=== PATIENT | female | born 1975 | race Caucasian/White ===

== ENCOUNTER 2017-06-19 12:41 | Outpatient (CLI) | payer OTHER ==
[2017-06-19] MEDS ORDERED: Furosemide 40 MG/4 ML VIAL ONE (16:09)
--- NOTE | 2017-06-19 17:07 | NM ---
RADIONUCLIDE DIURETIC RENOGRAM 06/19/17 HISTORY: Right sided hydronephrosis. RADIOPHARMACEUTICAL: 7.8 millicuries technetium 99m-MAG3 injected intravenously. DIURETIC: 40 mg IV Lasix administered 15 minutes prior to the radiopharmaceutical. FINDINGS: There is diminished flow and slow uptake by the right kidney. The left kidney demonstrates normal fl ow, uptake and excretion with a downsloping excretion curve. There is slow upslope noted in the poor ly functioning right kidney. The differential function measures 85% on the left and 15% on the right. The right kidney does not demonstrate increasing tracer localization on the images even at the end o f the exam and there is no evidence of focal areas of intense uptake to suggest an obstructive proce ss. IMPRESSION: Poor function of the right kidney. No evidence of high grade obstruction. POS: KARI
== END 2017-06-19 12:42 | disposition home or self-care (01) ==
LOC: NM 12:41
PROVIDERS: ATTEND Urology
DX: N13.39 Other hydronephrosis (principal)
CPT/HCPCS: 78708; A4641; A9562; J1940

== ENCOUNTER 2017-09-29 09:00 | Outpatient (CLI) | payer OTHER, SELFPAY ==
--- NOTE | 2017-09-29 12:44 | CT ---
CT OF THE ABDOMEN AND PELVIS: 09/29/2017 HISTORY: Hydronephrosis. Right-sided pain. Hematuria. Cervical cancer with history of chemotherapy and radi ation. COMPARISON: 01/06/2017 TECHNIQUE: Serial axial CT imaging is obtained at 5 mm intervals, from the lung bases through the pubic symphysi s, with oral contrast. Coronal reformatted imaging obtained. FINDINGS: The lack of IV contrast limits assessment of the viscera and vascular structures and for lymphadenopa thy. The superior aspect of the liver dome is not fully imaged on this exam. The imaged lung bases appear grossly unremarkable. Limited assessment of the visualized hepatic parenchyma is unremarkable. The gallbladder, spleen, pa ncreas, and bilateral adrenal glands appear grossly unremarkable. There is no evidence for nephrolithiasis on either side. No evidence for hydronephrosis or hydroureter is seen on the left. There is prominent right-sided hydronephrosis with mild dilation and wall prominence of the proximal right ureter. The degree of hydronephrosis on the right appears stable. There was a double J ureter al stent in place on the prior examination, on the right, no longer present. There is stranding of the presacral fat with mild increased density in the presacral space, not signi ficantly changed when compared to the 01/16/2017 exam. There is ill defined soft tissue density in the right hemipelvis, inferior to and medial to the right sacroiliac joint, stable when compared to the 01/16/2017 exam and not optimally characterized withou t contrast media. The urinary bladder demonstrates a stable noncontrast enhanced appearance. Limited assessment for lymphadenopathy demonstrates no obvious abdominal or pelvic lymphadenopathy. There is mild scattered atherosclerotic calcification of the infrarenal abdominal aorta. The imaged osseous structures demonstrate sclerotic changes, associated with the iliac aspect of the bilateral sacroiliac joints, right greater than left, suggesting stable sacroiliitis. Lower lumbar spine facet hypertrophic changes are present, stable as well. IMPRESSION: There is ill defined increased density in the fat within the right hemipelvis in the presacral space, in keeping with the provided history of cervical cancer, status post radiation. As seen on the prio r examination, there is prominent hydronephrosis and proximal hydroureter on the right, etiology unce rtain. This may be on the basis of a distal ureteral structure, which may be associated with maligna ncy and/or radiation/scar. Post contrast imaging may be beneficial, if the patient is able. Retrogr becky pyelogram could potentially be beneficial as well, to better assess for cause of persistent right -sided hydroureter and hydronephrosis. POS: KARI
[2017-09-29] MEDS ORDERED: Iopamidol 370 76% 50 ML VIAL FS ONE (13:58)
== END 2017-09-29 09:01 | disposition home or self-care (01) ==
LOC: CT 09:00
PROVIDERS: ATTEND Urology
DX: N13.39 Other hydronephrosis (principal); N39.0 Urinary tract infection, site not specified; N13.4 Hydroureter; Z85.41 Personal history of malignant neoplasm of cervix uteri; Z92.3 Personal history of irradiation
CPT/HCPCS: 74176

== ENCOUNTER 2017-11-26 15:13 | Emergency (ER) | payer OTHER ==
[2017-11-26 16:42] LABS: #Eosinphils 0.5 thou/uL (0.0-0.7); #Lymphocytes 0.8 thou/uL (1.20-3.40); #Monocytes 0.6 thou/uL (0.11-0.59); #Neutrophils 6.6 thou/uL (1.40-6.50); %Basophils 0.3 % (0.0-1.0); %Eosinophils 5.8 % (0.0-10.0); %Lymphocytes 9.7 % (21.0-51.0); %Monocytes 7.1 % (0.0-10.0); %Neutrophils 77.1 % (42.0-75.0); Hemoglobin 13.7 g/dL (12.0-16.0); Mean Corpuscular HGB CONC 34.7 g/dL (32.0-36.0); Mean Corpuscular Hemoglobin 31.4 pg (27.0-31.0); Mean Corpuscular Volume 90.5 fl (81.0-99.0); Mean Platelet Volume 7.4 fL (7.4-10.4); Platelet Count 221 thou/uL (130-400); RBC Distribution Width 11.4 % (11.5-14.5); Red Blood Cell (RBC) Count 4.36 mill/uL (4.20-5.40); White Blood Cell (WBC) Count 8.5 thou/uL (4.8-10.8)
[2017-11-26 16:48] LABS: INR-International Normal Ratio 1.1; Prothrombin Time 13.9 SEC (12.0-14.7)
[2017-11-26 16:49] LABS: PTT 35.2 SEC (22.9-36.1)
[2017-11-26 17:01] LABS: ALT (SGPT) 8 U/L (8-55); AST (SGOT) 13 U/L (5-34); Albumin 4.2 g/dL (3.5-5.0); Alkaline Phosphatase 78 U/L (40-150); Anion Gap 17 mmol/L (10-20); BUN (Urea Nitrogen) 15 mg/dL (7.0-18.7); Bilirubin, Total 0.3 mg/dL (0.2-1.2); Calc. Creatinine Clearance 0 mL/min (70-130); Calcium 10.2 mg/dL (7.8-10.44); Carbon Dioxide 27 mmol/L (22-29); Chloride 98 mmol/L (98-107); Estimated GFR-MDRD 29; Globulin 3.5 g/dL (2.4-3.5); Glucose 99 mg/dL (70-105); Potassium 3.7 mmol/L (3.5-5.1); Protein, Total 7.7 g/dL (6.0-8.3); Sodium 138 mmol/L (136-145)
[2017-11-26 18:23] LABS: Bilirubin Negative (Negative); Blood, Urine Trace (Negative); Clarity CLEAR (Clear); Glucose, Urine (Dipstick) Negative (Negative); Leukocyte Large (Negative); Nitrite Negative (Negative); Protein, Urine (Dipstick) Negative (Neg-Trace); Specific Gravity, Urine 1.012 (1.002-1.036); Urobilinogen 0.2 mg/dL (0.2-1.0); pH, Urine 6.5 (5.0-9.0)
[2017-11-26 18:26] LABS: Bacteria/HPF None Seen HPF (None Seen); Hyaline Casts/LPF 0-3 HYALINE CAST LPF (0-3 Hyaline); Pathc Cast-AUWi Flag 0.14 (0-2.49); RBC/HPF 0-3 HPF (0-3); Squamous Epithelial None Seen HPF (0-3); WBC/HPF 21-50 HPF (0-3)
[2017-11-26 18:27] LABS: Pregnancy Test - Urine (BHCG) Negative (Negative); Specific Gravity 1.012 (1.002-1.036)
[2017-11-26 18:28] LABS: Pregu Control Background? CLEAR/WHITE (CLR/WHITE); Pregu Control Bar Appear? YES (CONTROL BAR)
--- NOTE | 2017-11-26 18:53 | RAD ---
RADIOGRAPH ABDOMEN TWO VIEWS: 11/26/17 HISTORY: 42-year-old female with generalized abdominal pain and constipation. FINDINGS: No free air. Nonobstructive bowel gas pattern. No evidence of organomegaly. IMPRESSION: Negative. POS: [facility]
[2017-11-26] MEDS ORDERED: Ketorolac Tromethamine 30 MG/ML VIAL ONE (18:56)
[2017-11-26] MEDS ORDERED: Cephalexin 250 MG CAP ONE (19:36)
--- NOTE | 2017-11-26 20:07 | ULT ---
ULTRASOUND PELVIS: 11/26/17 HISTORY: 42-year-old female with vaginal bleeding with history of cervical cancer. TECHNIQUE: Transabdominal transducer was used to evaluate the intrapelvic contents using the urinary bladder as an acoustic window. Patient refused the endovaginal ultrasound. FINDINGS: The uterus is 7.5 x 4.5 x 6.5 cm. There is a large number of small, very hyperechoic foci throughout the uterine cervix and lower uterine segment, with shadowing. A transvaginal ultrasound was not performed. The ovaries are not visualized. The myometrium of the ut erine body and uterine fundus are abnormally hypoechoic. The endometrial stripe is not visualized. IMPRESSION: 1. Limited study because transvaginal ultrasound was not performed. 2. Numerous shadowing hyperechoic foci throughout the uterine cervix and lower uterine segment. Differential diagnosis includes gas which could indicate a severe infection or could represent a tamp on, versus numerous calcifications (although no calcifications are demonstrated on the CT of 09/29/17) . 3. Unusually diffusely hypoechoic uterus. 4. Given the history of cervical cancer, if there is clinical concern that there could be cervic al cancer invasion of the uterus, OB-AIRCRAFT STRUCTURAL FITTER consultation is recommended. Code T POS: KARI
== END 2017-11-26 20:05 | disposition home or self-care (01) ==
LOC: ERS 15:13
DX: N93.9 Abnormal uterine and vaginal bleeding, unspecified (principal); C76.0 Malignant neoplasm of head, face and neck; N39.0 Urinary tract infection, site not specified; F43.10 Post-traumatic stress disorder, unspecified; F17.210 Nicotine dependence, cigarettes, uncomplicated
CPT/HCPCS: 74018; 76856; 80053; 81003; 81015; 81025; 85025; 85610; 85730; 86850; 86900; 86901; 87086; 96374; J1885

== ENCOUNTER 2017-12-20 12:25 | Observation (INO) | payer SELFPAY ==
[2017-12-20 13:45] LABS: Bilirubin Negative (Negative); Blood, Urine Trace (Negative); Clarity CLOUDY (Clear); Glucose, Urine (Dipstick) Negative (Negative); Leukocyte Large (Negative); Nitrite Negative (Negative); Protein, Urine (Dipstick) Trace mg/dL (Neg-Trace); Specific Gravity, Urine 1.017 (1.002-1.036); Urobilinogen 0.2 mg/dL (0.2-1.0); pH, Urine 5.5 (5.0-9.0)
[2017-12-20 13:46] LABS: Bacteria/HPF Rare-Few HPF (None Seen); Hyaline Casts/LPF 0-3 HYALINE CAST LPF (0-3 Hyaline); Pathc Cast-AUWi Flag 0.87 (0-2.49); Squamous Epithelial 0-3 HPF (0-3)
[2017-12-20 13:47] LABS: #Eosinphils 0.6 thou/uL (0.0-0.7); #Lymphocytes 0.8 thou/uL (1.20-3.40); #Monocytes 0.6 thou/uL (0.11-0.59); %Basophils 0.5 % (0.0-1.0); %Neutrophils 70.5 % (42.0-75.0); Hemoglobin 12.5 g/dL (12.0-16.0); Mean Corpuscular Hemoglobin 32.2 pg (27.0-31.0); Mean Corpuscular Volume 91.9 fl (81.0-99.0); Mean Platelet Volume 7.7 fL (7.4-10.4); Platelet Count 181 thou/uL (130-400); RBC Distribution Width 11.9 % (11.5-14.5); Red Blood Cell (RBC) Count 3.88 mill/uL (4.20-5.40)
[2017-12-20 13:48] LABS: Pregnancy Test - Urine (BHCG) Negative (Negative); Pregu Control Background? CLEAR/WHITE (CLR/WHITE); Pregu Control Bar Appear? YES (CONTROL BAR); Specific Gravity 1.017 (1.002-1.036)
[2017-12-20 14:07] LABS: ALT (SGPT) 10 U/L (8-55); AST (SGOT) 9 U/L (5-34); Albumin 3.9 g/dL (3.5-5.0); Alkaline Phosphatase 81 U/L (40-150); Anion Gap 14 mmol/L (10-20); BUN (Urea Nitrogen) 14 mg/dL (7.0-18.7); Bilirubin, Total 0.3 mg/dL (0.2-1.2); Calc. Creatinine Clearance 0 mL/min (70-130); Calcium 9.7 mg/dL (7.8-10.44); Carbon Dioxide 23 mmol/L (22-29); Chloride 103 mmol/L (98-107); Estimated GFR-MDRD 29; Globulin 3.1 g/dL (2.4-3.5); Glucose 86 mg/dL (70-105); Lipase 23 U/L (8-78); Potassium 3.6 mmol/L (3.5-5.1); Sodium 136 mmol/L (136-145)
[2017-12-20] MEDS ORDERED: Ondansetron ODT 8 MG TAB ONE (14:23)
[2017-12-20] MEDS ORDERED: Morphine 4 MG/ML VIAL ONE (14:23)
[2017-12-20] MEDS ORDERED: Ondansetron HCl/PF 4 MG/2 ML Vial IVP PRN (16:20)
--- NOTE | 2017-12-20 16:20 | PDOC.EVN ---
Event Note - Event Note Event Note: [facility] #[id number]
--- NOTE | 2017-12-20 16:22 | CT ---
CT OF THE ABDOMEN AND PELVIS WITHOUT IV CONTRAST: History: 42-year-old with history of cervical cancer. Patient was treated with aggressive radiation. The patient is having pelvic pain. Technique: Contrast enhanced CT images of the abdomen and pelvis were obtained after administration o f oral contrast. IV contrast was not given due to inadequate renal function. FINDINGS: The lung bases are unremarkable. The liver and spleen are unremarkable. The pancreas and gallbladder are unremarkable. Adrenal glands unremarkable. There is cortical atrophy seen in the right kidney. There is hydroureteronephrosis with dilatation of the right collecting system and renal pelvis. This was noted in the patient's previous CT from 09-29-17, however, the degree of right sided hydroureteronephrosis appears to be slightly mor e advanced and increased since the previous exam. The left ureter previously was collapsed. There is now some fullness in the left ureter suggesting some developing left sided hydronephrosis as well. No evidence of periaortic lymphadenopathy seen. There does appear to be some slight thickening of the sigmoid colon and rectum. This may represent ch anges of colitis. There does also appear to be some bladder wall thickening, also concerning for cyst itis. These could all be post radiation changes. Correlate with patient's history. Interval developme nt of increasing bilateral hydroureteronephrosis. POS: [facility]
[2017-12-20] MEDS ORDERED: cefTRIAXone\\ROCEPHIN 1 GM in Sodium Chloride 0.9% 100 ML IVPB SCH (16:30)
--- NOTE | 2017-12-20 16:34 | HP ---
DATE OF ADMISSION: 12/20/2017 CHIEF COMPLAINT: Abdominal pain, lower quadrant. HISTORY OF PRESENT ILLNESS: This is a 42-year-old female with a past medical history of cervical can cer leading to right kidney failure from severe hydronephrosis and obstruction, being treated by Dr. Ordaz and Navdeep for prior visits. The patient states that she is having severe lower quadrant pain for the past 3 weeks and decided to come in. The patient at this point in time states that she has had no fevers at home, but has had persistent lower quadrant pain. States that moving makes it worse . Defecating and urinating also makes it worse. No other alleviating or aggravating factors noted. The patient was seen and examined in the ER. is at bedside. All questions answered. The p atient has not had these symptoms before. ALLERGIES: PENICILLINS. PAST MEDICAL HISTORY: Right-sided hydronephrosis, right-sided kidney failure, chronic kidney disease stage 3 to 4, hypertension, hyperlipidemia, cervical cancer in remission. HOME MEDICATIONS: See MAR. FAMILY HISTORY: Diabetes mellitus, hypertension, hyperlipidemia, cancers. SOCIAL HISTORY: The patient used to do crack cocaine, but apparently quit about 18 years ago and pat ient states that she also smokes 1/4 pack of cigarettes per day, has been cut down from 1 pack a day. She has been smoking for more than 30+ years. REVIEW OF SYSTEMS: Twelve point review of systems performed, pertinent positives in the HPI, otherwi se negative. PHYSICAL EXAMINATION: VITAL SIGNS: Blood pressure is 134/88, heart rate of 88, respiratory rate of 16, temperature of 98, O2 saturation is 98% on room air. GENERAL: Patient in no acute distress, lying in bed comfortably. HEENT: Pupils are equal, round, reactive to light and accommodation. Extraocular muscles intact. O ral cavity is moist and pink. No lymphadenopathy noted. NECK: Supple, mobile, nontender thyroid. LUNGS: Clear to auscultation bilaterally. No respiratory distress. CARDIOVASCULAR: Regular rate and rhythm. S1 and S2. No murmurs, rubs or gallops appreciated. ABDOMEN: Positive bowel sounds, soft, tenderness to palpation in right inguinal, left inguinal and s uprapubic regions as well as bilateral CVA tenderness, left worse than right. EXTREMITIES: 2+ peripheral pulses. No edema noted. NEUROLOGIC: Alert and oriented x3. No loss of motor or sensory function. LABORATORY DATA: Laboratory lugo, CBC within normal limits. BMP: Creatinine of 1.88. Urinalysis; trace blood, large leukocyte esterase and too numerous to count RBCs. IMAGING STUDIES: Abdominal CT scan, patient is noted to have severe right-sided hydronephrosis. ASSESSMENT AND PLAN: 1. Urinary tract infection. 2. Right and left-sided hydronephrosis. 3. Chronic kidney disease stage 4. 4. History of cervical cancer with obstructive nephropathy. 5. Hypertension. 6. Lower quadrant pain. At this point of time, we will admit patient to Med Surgery, observation, start antibiotics, obtain u rine cultures and consult to patient's OB as well as Urology per patient request, pain control. We w ill start the patient on low dose IV fluids at about 75 mL an hour. Continue home meds as appropriat e. SCDs for DVT prophylaxis as well as Pepcid for GI prophylaxis. Case and plan discussed with the patient at length. is at bedside. They understand and agre e with this plan.
[2017-12-20] MEDS ORDERED: Iopamidol 370 76% 50 ML VIAL FS ONE (16:40)
[2017-12-20 17:12] VITALS: BMI 31.3
[2017-12-20] MEDS: traMADol HCl 50 MG TAB PO PRN ×2 (17:44→23:07)
[2017-12-20] MEDS: Sodium Chloride 0.9% 1,000 ML IV SCH (17:45)
[2017-12-21 05:16] LABS: #Eosinphils 0.7 thou/uL (0.0-0.7); #Lymphocytes 1.1 thou/uL (1.20-3.40); #Monocytes 0.6 thou/uL (0.11-0.59); #Neutrophils 4.3 thou/uL (1.40-6.50); %Basophils 0.5 % (0.0-1.0); %Eosinophils 10.2 % (0.0-10.0); %Lymphocytes 16.7 % (21.0-51.0); %Monocytes 8.4 % (0.0-10.0); %Neutrophils 64.2 % (42.0-75.0); Hemoglobin 11.8 g/dL (12.0-16.0); Mean Corpuscular HGB CONC 34.3 g/dL (32.0-36.0); Mean Corpuscular Hemoglobin 31.3 pg (27.0-31.0); Mean Corpuscular Volume 91.2 fl (81.0-99.0); Mean Platelet Volume 7.6 fL (7.4-10.4); Platelet Count 212 thou/uL (130-400); Red Blood Cell (RBC) Count 3.77 mill/uL (4.20-5.40); White Blood Cell (WBC) Count 6.7 thou/uL (4.8-10.8)
[2017-12-21] MEDS: traMADol HCl 50 MG TAB PO PRN (05:20)
[2017-12-21] MEDS: Sodium Chloride 0.9% 1,000 ML IV SCH (05:21)
[2017-12-21 06:06] LABS: Anion Gap 12 mmol/L (10-20); BUN (Urea Nitrogen) 15 mg/dL (7.0-18.7); Calc. Creatinine Clearance 47 mL/min (70-130); Carbon Dioxide 27 mmol/L (22-29); Chloride 104 mmol/L (98-107); Estimated GFR-MDRD 30; Glucose 80 mg/dL (70-105); Potassium 4.3 mmol/L (3.5-5.1); Sodium 139 mmol/L (136-145)
[2017-12-21] MEDS ORDERED: Famotidine 20 MG TAB PO SCH (09:00)
--- NOTE | 2017-12-21 09:36 | CON ---
DATE OF CONSULTATION: 12/21/2017 REQUESTING PHYSICIAN: Dr. Gabriele Griggs CONSULTING PHYSICIAN: Jeffery Ordaz M.D. REASON FOR CONSULTATION: Vaginal discharge, pelvic pain, stage 3B cervical cancer. HISTORY OF PRESENT ILLNESS: Ms. Gamboa is a 42-year-old well known to me. She was initially seen b [facility] in 06/2016 with right hydronephrosis and invasive cervical cancer, stage 3B. She received aggres sive internal and external XRT as well as ureteral stents by Dr. Sethi. She ended up having renal f ailure on the right kidney from ureteral obstruction. She presents with several weeks of increasing pain and vaginal discharge. She was seen in my office last week, noted to have a significant dischar ge, but was unable to perform a biopsy secondary to pain and discomfort. She is now admitted to the hospital for this pain and is to undergo cystoscopy by Dr. 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 OB AND DISTRICT CAPTAIN HISTORY: , living 3, diagnosed in [place] in March or April of 2016. The patient did not receive treatment until presenting to [place] in late 06/2016. PAST MEDICAL HISTORY: Cancer of the cervix, stage 3B. PAST SURGICAL HISTORY: Stents and radiation. ALLERGIES: PENICILLIN. MEDICATIONS: See MAR. FAMILY HISTORY: Diabetes, hypertension, hyperlipidemia. SOCIAL HISTORY: Distant history of crack cocaine use. Positive for tobacco use. REVIEW OF SYSTEMS: Significant for abdominal pain, worse with defecation and urination. PHYSICAL EXAMINATION: VITAL SIGNS: Temperature 98.2, pulse 74, respirations 16, blood pressure 118/56. ABDOMEN: Soft and nontender, without rebound or guarding. PELVIC: Vulva, the patient has a vaginal discharge. The rest of the pelvic exam is deferred at this time. EXTREMITIES: Without clubbing, cyanosis or edema. RADIOLOGY: CT scan, please see the dictated note. Of note, no mention of the uterus or cervix is no ish on any report despite the fact the patient has not had a hysterectomy. IMPRESSION: Vaginal discharge, lower abdominal pain. Gas noted in the lower uterine segment and cer vix. All likely consistent with recurrence of cervical cancer. PLAN: Exam under anesthesia and cervical biopsy concomitant cystoscopy by Dr. Sethi. Will follow u p results. Unfortunately the patient is unlikely to have many treatment options available as she is not noted to be a candidate for a pelvic exenteration and is likely a max dose of radiation. May be a candidate for some palliative chemotherapy. We will obtain Oncology consult after obtaining a tiss ue diagnosis.
[2017-12-21] MEDS ORDERED: Iothalamate Meglumine 60% 50 ML VIAL FS ONE (11:15)
[2017-12-21] MEDS ORDERED: Levofloxacin 500 mg/D5W 100 ml Premix Bag ONE (11:37)
--- NOTE | 2017-12-21 12:23 | PDOC.PN ---
- Subjective Encounter Start Date: 12/21/17 Encounter Start Time: 08:00 Subjective: no abd pain now, is npo for cystoscopy this am - Objective Resuscitation Status: Resuscitation Status FULL:Full Resuscitation MAR Reviewed: Yes Vital Signs & Weight: Vital Signs (12 hours) Temp Pulse Resp BP Pulse Ox 12/21/17 11:17 93 149/74 H 12/21/17 08:00 98.2 F 74 16 12/21/17 04:05 98.2 F 74 16 118/56 L 94 L Weight Weight 165 lb 11.2 oz I&O: 12/20/17 12/21/17 12/22/17 06:59 06:59 06:59 Intake Total 1826 Balance 1826 Result Diagrams: 12/21/17 04:05 12/21/17 04:05 Phys Exam - Physical Examination HEENT: PERRLA, moist MMs Neck: no JVD, supple Respiratory: no wheezing, no rales Cardiovascular: RRR, no significant murmur Gastrointestinal: soft, non-tender, no distention, positive bowel sounds Musculoskeletal: no edema, pulses present Neurological: non-focal, moves all 4 limbs Psychiatric: normal affect, A&O x 3 Dx/Plan (1) b/l hydronephrosis Status: Acute Comment: due to cervical malignancy? (2) UTI (urinary tract infection) Status: Acute Qualifiers: Urinary tract infection type: acute cystitis Hematuria presence: without hematuria Qualified Code(s): N30.00 - Acute cystitis without hematuria (3) Cervical malignancy Code(s): C53.9 - MALIGNANT NEOPLASM OF CERVIX UTERI, UNSPECIFIED Status: Chronic Qualifiers: Malignant neoplasm of cervix location: unspecified location Qualified Code( s): C53.9 - Malignant neoplasm of cervix uteri, unspecified (4) CKD (chronic kidney disease) stage 3, GFR 30-59 ml/min Code(s): N18.3 - CHRONIC KIDNEY DISEASE, STAGE 3 (MODERATE) Status: Chronic (5) HTN (hypertension) Code(s): I10 - ESSENTIAL (PRIMARY) HYPERTENSION Status: Chronic Qualifiers: Hypertension type: essential hypertension Qualified Code(s): I10 - Essential (primary) hypertension (6) Dyslipidemia Code(s): E78.5 - HYPERLIPIDEMIA, UNSPECIFIED Status: Chronic (7) Anemia Code(s): D64.9 - ANEMIA, UNSPECIFIED Status: Chronic Qualifiers: Anemia type: unspecified type Qualified Code(s): D64.9 - Anemia, unspecified - Plan is going for cystoscopy and colposcopy today -: last chemo/radiation was last year -: creatinine around 1.8 -: ceftriaxone for uti, await culture results -: gentle iv hydration until she is npo * . Review of Systems - Medications/Allergies Allergies/Adverse Reactions: Allergies Allergy/AdvReac Type Severity Reaction Status Date / Time Penicillins Allergy Rash Verified 05/01/17 15:38 Medications: Current Medications Famotidine (Pepcid) 20 mg PO DAILY BRENDA Sodium Chloride (Normal Saline 0.9%) 1,000 mls @ 75 mls/hr IV .[id number] BRENDA Last Admin: 12/21/17 05:21 Dose: 1,000 mls Ceftriaxone Sodium 1 gm/ (Syringe 0.4 ml/ Sterile Water) 10 mls @ 120 mls/hr SLOW IVP Q24HR@1500 BRENDA Ondansetron HCl (Zofran) 4 mg IVP Q6H PRN PRN Reason: Nausea/Vomiting Tramadol HCl (Ultram) 50 mg PO Q6H PRN PRN Reason: Pain Last Admin: 12/21/17 05:20 Dose: 50 mg
[2017-12-21] MEDS ORDERED: Fentanyl 100 MCG/2 ML VIAL ONE ×2 (12:27→13:49)
[2017-12-21] MEDS ORDERED: Famotidine/PF 20 mg/2ml Vial ONE (12:27)
[2017-12-21] MEDS ORDERED: Ferric Subsulfate 8 ML BOT ONE (12:35)
[2017-12-21] MEDS ORDERED: Lidocaine 1% w/Epinephrine 1:200K 30 ML VIAL ONE (12:35)
[2017-12-21] MEDS ORDERED: HYDROmorphone 2 MG/ML VIAL SLOW IVP PRN (13:16)
[2017-12-21] MEDS ORDERED: Meperidine HCl/PF 25 MG/ML VIAL SLOW IVP PRN (13:16)
[2017-12-21] MEDS ORDERED: Promethazine HCl 25 MG/ML VIAL SLOW IVP PRN (13:16)
[2017-12-21] MEDS ORDERED: Promethazine HCl 25 MG/ML VIAL IM PRN (13:16)
[2017-12-21] MEDS ORDERED: Ondansetron HCl/PF 4 MG/2 ML Vial IVP PRN (13:16)
[2017-12-21] MEDS ORDERED: HYDROmorphone 0.5 MG/0.5 ML SYRINGE ONE ×4 (14:05→14:38)
--- NOTE | 2017-12-21 14:17 | RAD ---
RETROGRADE IVP: Comparison: 05-08-17, CT abdomen/pelvis 12-20-17 History: kidney stones FINDINGS/IMPRESSION: Limited intraoperative fluoroscopic views were performed during a retrograde IVP. Contrast in the col on limits evaluation. Contrast is seen in both renal collecting systems. There may be a duplicated le ft renal collecting system which does not extend all the way to the kidney. No filling defects are se en on either side. It is difficult to see the patient's moderate right sided hydronephrosis given the contrast in the colon. POS: KARI
[2017-12-21] MEDS ORDERED: cefTRIAXone\\ROCEPHIN 1 GM, Syringe 0.4 ML in Sterile Water 9.6 ML SLOW IVP SCH (15:00)
--- NOTE | 2017-12-21 15:15 | OP ---
DATE OF PROCEDURE: 12/21/2017 PREOPERATIVE DIAGNOSES: Stage III B cervical cancer with CT abnormality and vaginal discharge. POSTOPERATIVE DIAGNOSES: Stage III B cervical cancer with CT abnormality and vaginal discharge. PROCEDURE: Exam under anesthesia with a random cervical biopsy x4. SURGEON: Jeffery Ordaz M.D. ANESTHESIA: General endotracheal. ESTIMATED BLOOD LOSS: Less than 50 mL COMPLICATIONS: None. DRAINS: None. OPERATIVE FINDINGS: 1. A very foul smelling vaginal discharge with necrotic tissue at the level of the cervix. No evide nce of retained tampon. 2. A rubbery and large cervix, but no firmness consistent with recurrent cancer. 3. Cervical biopsies performed at 12, 3, 6, and 9. 4. Reasonable hemostasis with Monsel's application at the end of procedure. DISPOSITION: Recovery room and to floor in good condition. DESCRIPTION OF OPERATIVE PROCEDURE: The patient was taken to operating room. Dr. Sethi completed t he cystoscopy around the presentation. Sided speculum was placed in vagina very foul smelling discha rge was noted, white tissue that appeared to just be necrosis and not a retained tampon was seen at t he level of the cervix and removed. The margin between necrotic tissue and the cervix was identified and biopsied randomly as there was no dominant lesion noted at 12, 3, 6, and 9. Bimanual exam confi [place] findings as noted the operative finding. Monsel solution was applied, minimal bleeding was noted after application of solution. We will place the patient on Flagyl due to the likely anaerobic natu re of the patient's vaginal infection and follow up biopsy results.
[2017-12-21 15:24] VITALS: TEMP 97.8
[2017-12-21] MEDS ORDERED: metroNIDAZOLE 500 MG TAB PO SCH ×2 (15:30→21:00)
[2017-12-21] MEDS ORDERED: HYDROcodone/Acetaminophen 10/325 mg Tablet PO PRN ×2 (15:41)
[2017-12-21] MEDS ORDERED: Morphine 4 MG/ML VIAL SLOW IVP PRN (15:45)
--- NOTE | 2017-12-21 16:04 | DIS ---
DATE OF ADMISSION: 12/20/2017 DATE OF DISCHARGE: 12/21/2017 DISCHARGE DISPOSITION: To home. PRIMARY DISCHARGE DIAGNOSES: Likely recurrence of cervical cancer, status post cystoscopy with retrograde pyelogram and pelvic exam under anesthesia with random cervical biopsy. SECONDARY DISCHARGE DIAGNOSES: Urinary tract infection, hypertension, dyslipidemia, and chronic anemia. PROCEDURES DONE DURING HOSPITALIZATION: CT of the abdomen and pelvis done showed findings suggestive of bilateral hydronephrosis. 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 The patient has had cystoscopy and pelvic exam under anesthesia with random cervical biopsy x4 done by both Dr. Sethi for Urology and Dr. Ordaz for SENIOR MICROSTRATEGY DEVELOPER. DISCHARGE MEDICATIONS: Ciprofloxacin 500 mg p.o. twice daily for 1 week, Flagyl 500 mg p.o. 3 times daily for 1 week, multivitamin 1 tab once daily, Ultram p.r.n. for pain. ALLERGIES: PENICILLIN. INPATIENT CONSULTS: Dr. Ordaz for SENIOR MICROSTRATEGY DEVELOPER, Dr. Sethi for Urology. BRIEF COURSE DURING HOSPITALIZATION: Patient initially got admitted for complaints of lower quadrant abdominal pain. She has had an initial CT of the abdomen and pelvis done which showed findings suggestive of bilateral hydronephrosis. She has had known history of cervical cancer and has had prior chemo and radiation therapy for the same. She has had consultation with Dr. Ordaz for SENIOR MICROSTRATEGY DEVELOPER and Dr. Sethi for Urology. She had a pelvic exam under anesthesia and has had random cervical biopsies done. There was also necrotic tissue seen at the level of the cervix with very foul-smelling vaginal discharge. There was no retained tampon. The findings are suspicious for possible recurrent cancer. There was no urologic intervention including stenting done. The patient has known history of right kidney being nonfunctional. Her left ureter was free flowing with no obstructive etiology as such per (official OR reports are pending at the time of this dictation). She has been cleared by both specialists for discharge. The patient needs follow up with primary care physician in one week and Dr. Ordaz as advised with cervical biopsy results pending at present. Please see a face- to-face [facility]
[2017-12-21] MEDS ORDERED: PROPOFOL 200 MG/20 ML VIAL ONE (16:11)
[2017-12-21] MEDS ORDERED: Ondansetron HCl/PF 4 MG/2 ML Vial ONE (16:11)
[2017-12-21] MEDS ORDERED: Lidocaine 1% PF 5 ML VIAL ONE (16:11)
[2017-12-21 16:25] VITALS: BP 141/67
--- NOTE | 2017-12-22 12:37 | OP ---
DATE OF PROCEDURE: 12/21/2017 PREOPERATIVE DIAGNOSES: Right hydronephrosis, possible left hydronephrosis, dysuria with normal urin e culture and history of cervical cancer. PROCEDURE: Cystoscopy, bilateral retrograde pyelography. SURGEON: Dr. Abhilash Sethi ANESTHETIC: General. ESTIMATED BLOOD LOSS: Minimal. FINDINGS: There was no evidence of urethral stenosis. The bladder was free of tumor, foreign body o r stone. There were 2 ureteral orifices in normal position. 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 There was no evidence of any cancer invading into the floor or trigone of the bladder. There is no sign of any fistula. Retrograde studies revealed dilatation of the right upper collecting system and ureter; however, this area drains easily after the retrograde. This was done twice. 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 I do believe this is a new finding. It also drains and then a normal appearing nonobstructed proximal left ureter. OPERATIVE TECHNIQUE: After obtaining written and verbal consent from the patient after receiving IV Levaquin, she was taken the operating suite. She was placed in the supine position on the treatment table. PlexiPulses were placed on her lower extremities and turned on. She was given a general anes thetic and oral obturator intubation. She was placed in the dorsal lithotomy position and sterilely prepped and draped. Cystoscopy was performed with a 22-Swedish sheath. This was well lubricated and passed under direct vision through the female urethra into the urinary bladder with aid of a video ca gurdeep and monitor and a 30-degree lens. The bladder was filled and emptied 2-3 times and examined wit h both a 30 and the 70 degree lens. At this point, a 5-Swedish Pollack catheter was flushed with cont rast. A lockstitch sleeve setter KUB was taken with the fluoroscopy unit. We initially did a retrograde study of the l eft ureter injecting slowly about 12 mL of contrast in a retrograde manner. There was what appears t o be an incomplete ureteral duplication or ureteral diverticulum that does not connect with any area in the area of the renal fossa and it does drain. It then fills out a normal appearing nonobstructin g appearing upper collecting system that also drains. At this point, the right side was done that sh owed dilatation of the proximal two-thirds of the right ureter and renal pelvis; however, the contras t effluxes across this area easily and there is no persistent obstruction seen across here. This was repeated twice on the right and twice on the left. I did show Dr. Ordaz as he came in to do his pa rt of the procedure. At this point, the bladder straining instruments removed and the procedure was turned over to Dr. Ordaz.
== END 2017-12-21 18:55 | disposition home or self-care (01) ==
LOC: ERS 12:25 → 2SW 15:58
PROVIDERS: ADMIT Internal Medicine; ATTEND Internal Medicine
PROC: 0UBC7ZX Excision of Cervix, Via Natural or Artificial Opening, Diagnostic (ICD-10-PCS; principal; 2017-12-21)
PROC: BT141ZZ Fluoroscopy of Kidneys, Ureters and Bladder using Low Osmolar Contrast (ICD-10-PCS; 2017-12-21)
DX: C53.9 Malignant neoplasm of cervix uteri, unspecified (principal); N89.8 Other specified noninflammatory disorders of vagina; N28.82 Megaloureter; E78.5 Hyperlipidemia, unspecified; I12.9 Hypertensive chronic kidney disease with stage 1 through stage 4 chronic kidney disease, or unspecified chronic kidney disease; N18.4 Chronic kidney disease, stage 4 (severe); D63.1 Anemia in chronic kidney disease; N39.0 Urinary tract infection, site not specified; D53.9 Nutritional anemia, unspecified; F17.210 Nicotine dependence, cigarettes, uncomplicated; F14.11 Cocaine abuse, in remission; Z92.3 Personal history of irradiation; Z88.0 Allergy status to penicillin; Z79.899 Other long term (current) drug therapy
CPT/HCPCS: 36415; 74176; 74420; 80048; 80053; 81003; 81015; 81025; 83690; 85025; 87086; 88305; 96361; 96374; 96375; 96376; A4216; G0378; J0696; J1170; J1956; J2001; J2270; J2405; J2704; J3010; Q9961; S0028

== ENCOUNTER 2018-01-08 15:17 | Outpatient (CLI) | payer OTHER | END 2018-01-08 15:18 | disposition home or self-care (01) | LOC: BICCT 15:17 | PROVIDERS: ATTEND Internal Medicine Hematology & Oncology | DX: C53.9 Malignant neoplasm of cervix uteri, unspecified (principal); R91.8 Other nonspecific abnormal finding of lung field; J43.2 Centrilobular emphysema; I70.0 Atherosclerosis of aorta; I25.10 Atherosclerotic heart disease of native coronary artery without angina pectoris; Z95.818 Presence of other cardiac implants and grafts; N13.30 Unspecified hydronephrosis | CPT/HCPCS: 71250 ==